=== PATIENT | female | born 1965 | race Caucasian/White ===

== ENCOUNTER 2017-11-04 10:29 | Emergency (ER) | payer MEDICAID ==
[~2017-11-04] VITALS: Ht 170.2 cm; Wt 105.0 kg
[2017-11-04 15:49] VITALS: BP 139/80
== END 2017-11-04 16:01 | disposition home or self-care (01) ==
LOC: ER 12:18
DX: M25.562 Pain in left knee (principal); H92.02 Otalgia, left ear
CPT/HCPCS: 73562; 93971; 99284; L1830

== ENCOUNTER 2019-04-29 10:17 | Emergency (ER) | payer MEDICAID ==
[~2019-04-29] VITALS: Ht 172.7 cm; Wt 90.0 kg
[2019-04-29] MEDS ORDERED: IBUPROFEN 600MG TABLET PO STA (11:10)
[2019-04-29 11:36] LABS: BASOPHILS % 1.1 % (0.0-2.0); EOSINOPHILS % 1.9 % (0.0-5.0); HEMATOCRIT. 35.9 % (36.0-48.0); HEMOGLOBIN. 12.4 g/dL (12.0-16.0); LYMPHOCYTES % 46.3 % (20.0-50.0); MEAN CORPUSCULAR HEMOGLOBIN 29.5 pg (28.0-32.0); MEAN CORPUSCULAR VOLUME 85.3 fL (81.0-99.0); MEAN PLATELET VOLUME 8.2 fl (7.4-10.4); MONOCYTES % 7.8 % (2.0-8.0); NEUTROPHILS % 42.9 % (40.0-76.0); PLATELET 289 x1000/uL (130-400); RED CELL DISTRIBUTION WIDTH 13.3 % (11.6-14.6)
[2019-04-29 11:37] LABS: CHLORIDE 108 mEq/L (98-107)
[2019-04-29 11:42] LABS: CLARITY URINE CLEAR (CLEAR); COLOR URINE YELLOW (YELLOW); KETONES URINE NEGATIVE (NEGATIVE); LEUKOCYTE ESTERASE URINE NEGATIVE (NEGATIVE); NITRITE URINE NEGATIVE (NEGATIVE); OCCULT BLOOD URINE TRACE (NEGATIVE); PH URINE 6.5 (4.5-8.0); PROTEIN URINE NEGATIVE (NEGATIVE); SPECIFIC GRAVITY URINE 1.017 (1.005-1.030); UROBILINOGEN URINE 0.2 E.U./dL (0.2-1.0)
[2019-04-29] MEDS ORDERED: ONDANSETRON 4MG ODT PO ONE (11:45)
[2019-04-29 13:22] VITALS: BP 119/80
== END 2019-04-29 13:30 | disposition home or self-care (01) ==
LOC: ER 10:17
DX: R51 Headache (principal); R10.9 Unspecified abdominal pain
CPT/HCPCS: 36415; 70450; 80053; 81003; 81025; 83690; 85025; 93005; 99285; Q0162

== ENCOUNTER 2022-05-28 12:33 | Emergency (ER) | payer MEDICAID, OTHER ==
[~2022-05-28] VITALS: Ht 172.7 cm; Wt 100.0 kg
[2022-05-28] MEDS ORDERED: IBUPROFEN 400MG TABLET PO ONE (13:30)
[2022-05-28] MEDS ORDERED: P50 MT (13:47)
[2022-05-28] MEDS ORDERED: IBUP-2028 MT (13:47)
[2022-05-28] MEDS ORDERED: VALA10002 MT (13:47)
[2022-05-28] MEDS ORDERED: HYDR-4001 MT (13:47)
[2022-05-28 14:02] VITALS: BP 134/90
== END 2022-05-28 14:04 | disposition home or self-care (01) ==
LOC: ER 12:33
DX: B02.9 Zoster without complications (principal); G43.909 Migraine, unspecified, not intractable, without status migrainosus
CPT/HCPCS: 99282

== ENCOUNTER 2022-12-25 18:53 | Emergency (ER) | payer OTHER ==
[~2022-12-25] VITALS: Ht 170.2 cm; Wt 100.0 kg
[~2022-12-25 18:53] MED LIST: HYDR-4001 MT; IBUP-2028 MT; P50 MT; VALA10002 MT
[2022-12-25 18:58] VITALS: O2SAT 99
[2022-12-25] MEDS ORDERED: NAPR-1176 MT (20:34)
[2022-12-25] MEDS ORDERED: LIDO700A15 TP (20:34)
[2022-12-25 20:54] VITALS: BP 143/68
[2022-12-25] MEDS: KETOROLAC 30MG/ML VIAL IM ONE (20:54)
[2022-12-25 20:55] VITALS: PULSE 78; RESP 18; TEMP 98.3
== END 2022-12-25 20:56 | disposition home or self-care (01) ==
LOC: ER 18:53
DX: M54.50 Low back pain, unspecified (principal); R51.9 Headache, unspecified; V98.8XXA Other specified transport accidents, initial encounter; Y93.89 Activity, other specified; Y92.89 Other specified places as the place of occurrence of the external cause; Y99.8 Other external cause status
CPT/HCPCS: 99285; 70450; 72125; 96372; J1885

== ENCOUNTER 2023-04-26 16:50 | Emergency (ER) | payer OTHER ==
[~2023-04-26] VITALS: Ht 172.7 cm; Wt 100.0 kg
[~2023-04-26 16:50] MED LIST changes: +LIDO700A15 TP; +NAPR-1176 MT
[2023-04-26 17:18] VITALS: TEMP 98.7; O2SAT 98
[2023-04-26 17:52] LABS: CLARITY URINE CLEAR (CLEAR); COLOR URINE YELLOW (YELLOW); GLUCOSE URINE NEGATIVE (NEGATIVE); KETONES URINE NEGATIVE (NEGATIVE); LEUKOCYTE ESTERASE URINE 1+ (NEGATIVE); NITRITE URINE POSITIVE (NEGATIVE); OCCULT BLOOD URINE 1+ (NEGATIVE); PH URINE 5.5 (4.5-8.0); PROTEIN URINE NEGATIVE (NEGATIVE); SPECIFIC GRAVITY URINE 1.025 (1.005-1.030)
[2023-04-26 18:35] LABS: BASOPHILS % 0.8 % (0.0-2.0); HEMATOCRIT. 35.9 % (36.0-48.0); HEMOGLOBIN. 12.1 g/dL (12.0-16.0); LYMPHOCYTES % 39.2 % (20.0-50.0); MEAN CORPUSCULAR HEMOGLOBIN 29.1 pg (28.0-32.0); MEAN CORPUSCULAR HGB CONC 33.7 g/dL (31.0-37.0); MEAN CORPUSCULAR VOLUME 86.4 fL (81.0-99.0); MEAN PLATELET VOLUME 8.6 fl (7.4-10.4); MONOCYTES % 6.3 % (2.0-8.0); NEUTROPHILS % 51.7 % (40.0-76.0); PLATELET 293 x1000/uL (130-400); RED BLOOD CELL COUNT 4.15 mill/uL (4.2-5.4); RED CELL DISTRIBUTION WIDTH 13.1 % (11.6-14.6); WHITE BLOOD COUNT 6.8 x1000/uL (4.5-11.0)
[2023-04-26 18:44] LABS: ALANINE AMINOTRANSFERASE 8 IU/L (10-49); ALBUMIN 4.4 g/dL (3.2-4.8); ASPARTATE AMINOTRANSFERASE 14 IU/L (<34); BILIRUBIN TOTAL 0.5 mg/dL (0.1-1.0); CALCIUM 9.4 mg/dL (8.7-10.4); CARBON DIOXIDE 30 mEq/L (21-32); CHLORIDE 107 mEq/L (98-107); GLUCOSE 109 mg/dL (70-105); POTASSIUM 3.7 mEq/L (3.5-5.1); PROTEIN TOTAL 7.3 g/dL (6.0-8.3); SODIUM 143 mEq/L (136-145); UREA NITROGEN BLOOD 12 mg/dL (9-23)
[2023-04-26 19:07] LABS: BACTERIA URINE 2+; RBC URINE NONE SEEN /hpf (0-2); SQUAMOUS EPITHELIAL CELL URINE FEW /lpf (RARE/1+)
[2023-04-26] MEDS ORDERED: NITR-87 MT (19:45)
[2023-04-26] MEDS ORDERED: PHEN-815 MT (19:45)
[2023-04-26 20:19] VITALS: BP 139/87; PULSE 66; RESP 16
== END 2023-04-26 20:26 | disposition home or self-care (01) ==
LOC: ER 16:50
DX: R33.9 Retention of urine, unspecified (principal); N39.0 Urinary tract infection, site not specified; Z98.890 Other specified postprocedural states; Z90.710 Acquired absence of both cervix and uterus; Z79.899 Other long term (current) drug therapy
CPT/HCPCS: 36415; 80053; 81003; 85025; 99283

== ENCOUNTER 2023-05-08 10:45 | Emergency (ER) | payer OTHER ==
[~2023-05-08] VITALS: Ht 167.6 cm; Wt 104.0 kg
[~2023-05-08 10:45] MED LIST changes: +NITR-87 MT; +PHEN-815 MT
[2023-05-08 11:02] VITALS: O2SAT 98
[2023-05-08 11:29] LABS: CLARITY URINE CLOUDY (CLEAR); COLOR URINE YELLOW (YELLOW); GLUCOSE URINE NEGATIVE (NEGATIVE); KETONES URINE NEGATIVE (NEGATIVE); LEUKOCYTE ESTERASE URINE 2+ (NEGATIVE); NITRITE URINE NEGATIVE (NEGATIVE); OCCULT BLOOD URINE 1+ (NEGATIVE); PROTEIN URINE NEGATIVE (NEGATIVE); SPECIFIC GRAVITY URINE 1.013 (1.005-1.030); UROBILINOGEN URINE 0.2 E.U./dL (0.2-1.0)
[2023-05-08] MEDS ORDERED: PYR200 MT (11:37)
[2023-05-08] MEDS ORDERED: CEPH500C2 MT (11:37)
[2023-05-08 11:43] LABS: BACTERIA URINE 1+; RBC URINE 0-2 /hpf (0-2); SQUAMOUS EPITHELIAL CELL URINE 2+ /lpf (RARE/1+); WBC URINE 50-100 /hpf (0-2); YEAST URINE NONE SEEN
[2023-05-08] MEDS: CEPHALEXIN 250MG CAPSULE PO ONE (12:18)
[2023-05-08] MEDS: PHENAZOPYRIDINE HCL 100MG TABLET PO ONE (12:18)
[2023-05-08 12:22] VITALS: BP 134/80; PULSE 69; RESP 12; TEMP 98
== END 2023-05-08 12:27 | disposition home or self-care (01) ==
LOC: ER 10:57
DX: N39.0 Urinary tract infection, site not specified (principal); Z90.710 Acquired absence of both cervix and uterus; Z98.890 Other specified postprocedural states; Z79.899 Other long term (current) drug therapy
CPT/HCPCS: 81003; 87077; 87186; 99283

== ENCOUNTER 2023-11-08 02:43 | Emergency (ER) | payer OTHER ==
[~2023-11-08] VITALS: Ht 172.7 cm; Wt 105.0 kg
[~2023-11-08 02:43] MED LIST changes: +CEPH500C2 MT; +PYR200 MT
[2023-11-08 02:49] VITALS: O2SAT 100
[2023-11-08 03:41] LABS: CHLORIDE 105 mEq/L (98-107); SODIUM 141 mEq/L (136-145)
[2023-11-08 03:42] LABS: CALCIUM 9.5 mg/dL (8.7-10.4); CARBON DIOXIDE 30 mEq/L (21-32)
[2023-11-08 03:47] LABS: CREATININE 1.1 mg/dL (0.6-1.0); GLUCOSE 114 mg/dL (70-105); UREA NITROGEN BLOOD 15 mg/dL (9-23)
[2023-11-08 03:49] LABS: ALANINE AMINOTRANSFERASE 11 IU/L (10-49); ALBUMIN 4.5 g/dL (3.2-4.8); ASPARTATE AMINOTRANSFERASE 17 IU/L (<34); BILIRUBIN TOTAL 0.3 mg/dL (0.1-1.0); PROTEIN TOTAL 7.2 g/dL (6.0-8.3)
[2023-11-08 03:52] LABS: BASOPHILS % 0.8 % (0.0-2.0); EOSINOPHILS % 2.7 % (0.0-5.0); HEMATOCRIT. 38.2 % (36.0-48.0); HEMOGLOBIN. 12.6 g/dL (12.0-16.0); LYMPHOCYTES % 42.7 % (20.0-50.0); MEAN CORPUSCULAR HEMOGLOBIN 28.4 pg (28.0-32.0); MEAN CORPUSCULAR VOLUME 85.9 fL (81.0-99.0); MEAN PLATELET VOLUME 8.5 fl (7.4-10.4); NEUTROPHILS % 47.8 % (40.0-76.0); PLATELET 334 x1000/uL (130-400); RED BLOOD CELL COUNT 4.44 mill/uL (4.2-5.4); RED CELL DISTRIBUTION WIDTH 13.4 % (11.6-14.6); WHITE BLOOD COUNT 6.2 x1000/uL (4.5-11.0)
[2023-11-08 04:02] LABS: BILIRUBIN DIRECT < 0.1 mg/dL (<=3.0); TROPONIN I HIGH SENSITIVITY < 4 ng/L (3.0-34)
[2023-11-08 05:01] LABS: CLARITY URINE CLEAR (CLEAR); COLOR URINE YELLOW (YELLOW); GLUCOSE URINE NEGATIVE (NEGATIVE); KETONES URINE NEGATIVE (NEGATIVE); LEUKOCYTE ESTERASE URINE TRACE (NEGATIVE); NITRITE URINE NEGATIVE (NEGATIVE); OCCULT BLOOD URINE 1+ (NEGATIVE); PH URINE 5.5 (4.5-8.0); PROTEIN URINE NEGATIVE (NEGATIVE); SPECIFIC GRAVITY URINE 1.027 (1.005-1.030)
[2023-11-08 05:40] LABS: SQUAMOUS EPITHELIAL CELL URINE 1+ /lpf (RARE/1+)
[2023-11-08 05:42] LABS: RBC URINE 0-2 /hpf (0-2)
[2023-11-08 05:43] LABS: BACTERIA URINE 1+
[2023-11-08] MEDS: MAGNESIUM/ALUMINUM HYDROXIDE/SIMETHICONE 30ML UDC PO NR (06:36)
[2023-11-08] MEDS: KETOROLAC 30MG/ML VIAL IM NR (06:36)
[2023-11-08] MEDS: FAMOTIDINE 20MG TABLET PO NR (06:36)
[2023-11-08 07:05] LABS: TROPONIN I HIGH SENSITIVITY < 4 ng/L (3.0-34)
[2023-11-08] MEDS ORDERED: FAMO40TA70 MT (07:41)
[2023-11-08] MEDS ORDERED: CEPH500C2 MT (07:41)
[2023-11-08 07:52] VITALS: BP 125/84; PULSE 63; RESP 20; TEMP 36.78072; O2SAT 100
== END 2023-11-08 07:55 | disposition home or self-care (01) ==
LOC: ER 02:43
DX: K80.50 Calculus of bile duct without cholangitis or cholecystitis without obstruction (principal); N39.0 Urinary tract infection, site not specified; Z79.899 Other long term (current) drug therapy
CPT/HCPCS: 80076; 80048; 81003; 81025; 83880; 83690; 85025; 84484; 36415; 71045; 76700; 93005; 96372; 99285; J1885; Z7610

== ENCOUNTER 2024-01-07 00:55 | Emergency (ER) | payer OTHER ==
[~2024-01-07] VITALS: Ht 172.7 cm; Wt 100.0 kg
[~2024-01-07 00:55] MED LIST changes: +FAMO40TA70 MT
[2024-01-07 01:01] VITALS: O2SAT 100
[2024-01-07 01:06] VITALS: BP 158/84; PULSE 74; RESP 16; TEMP 98.3; O2SAT 100
[2024-01-07] MEDS: ONDANSETRON 4MG ODT PO STA (01:28)
[2024-01-07] MEDS: HYDROCODONE/ACETAMINOPHEN 5/325MG TABLET PO ONE (01:28)
[2024-01-07 01:38] LABS: BASOPHILS % 0.8 % (0.0-2.0); EOSINOPHILS % 2.3 % (0.0-5.0); HEMATOCRIT. 36.3 % (36.0-48.0); HEMOGLOBIN. 12.5 g/dL (12.0-16.0); MEAN CORPUSCULAR HEMOGLOBIN 29.3 pg (28.0-32.0); MEAN CORPUSCULAR HGB CONC 34.3 g/dL (31.0-37.0); MEAN CORPUSCULAR VOLUME 85.5 fL (81.0-99.0); MONOCYTES % 6.8 % (2.0-8.0); NEUTROPHILS % 53.1 % (40.0-76.0); PLATELET 322 x1000/uL (130-400); RED BLOOD CELL COUNT 4.25 mill/uL (4.2-5.4); RED CELL DISTRIBUTION WIDTH 13.6 % (11.6-14.6); WHITE BLOOD COUNT 6.9 x1000/uL (4.5-11.0)
[2024-01-07 01:47] LABS: CHLORIDE 107 mEq/L (98-107); POTASSIUM 3.9 mEq/L (3.5-5.1); SODIUM 142 mEq/L (136-145)
[2024-01-07 01:48] LABS: CALCIUM 9.4 mg/dL (8.7-10.4); CARBON DIOXIDE 29 mEq/L (21-32)
[2024-01-07 01:53] LABS: GLUCOSE 125 mg/dL (70-105); UREA NITROGEN BLOOD 12 mg/dL (9-23)
[2024-01-07 01:54] LABS: ALANINE AMINOTRANSFERASE 15 IU/L (10-49); ASPARTATE AMINOTRANSFERASE 16 IU/L (<34)
[2024-01-07 01:55] LABS: ALBUMIN 4.3 g/dL (3.2-4.8); BILIRUBIN TOTAL 0.3 mg/dL (0.1-1.0)
[2024-01-07 03:15] LABS: CLARITY URINE CLEAR (CLEAR); COLOR URINE YELLOW (YELLOW); GLUCOSE URINE TRACE (NEGATIVE); KETONES URINE NEGATIVE (NEGATIVE); LEUKOCYTE ESTERASE URINE 1+ (NEGATIVE); NITRITE URINE NEGATIVE (NEGATIVE); OCCULT BLOOD URINE NEGATIVE (NEGATIVE); PH URINE 7.5 (4.5-8.0); PROTEIN URINE NEGATIVE (NEGATIVE); SPECIFIC GRAVITY URINE 1.016 (1.005-1.030); UROBILINOGEN URINE 0.2 E.U./dL (0.2-1.0)
[2024-01-07] MEDS ORDERED: HYDR-4001 MT (03:23)
[2024-01-07] MEDS ORDERED: CEPH500C2 MT (03:23)
[2024-01-07 04:47] LABS: RBC URINE 0-2 /hpf (0-2); SQUAMOUS EPITHELIAL CELL URINE FEW /lpf (RARE/1+); WBC URINE 0-2 /hpf (0-2)
[2024-01-07 04:49] LABS: BACTERIA URINE NONE SEEN
== END 2024-01-07 03:32 | disposition home or self-care (01) ==
LOC: ER 01:04
DX: K80.20 Calculus of gallbladder without cholecystitis without obstruction (principal); Z79.899 Other long term (current) drug therapy
CPT/HCPCS: 99284; 76705; 80053; 81003; 83690; 85025; 36415; Q0162

== ENCOUNTER 2024-01-11 02:23 | Emergency (ER) | payer OTHER ==
[~2024-01-11] VITALS: Ht 170.2 cm; Wt 104.7 kg
[2024-01-11 02:24] VITALS: O2SAT 100
[2024-01-11 02:56] LABS: BASOPHILS % 0.9 % (0.0-2.0); EOSINOPHILS % 3.7 % (0.0-5.0); HEMATOCRIT. 38.1 % (36.0-48.0); HEMOGLOBIN. 12.5 g/dL (12.0-16.0); MEAN CORPUSCULAR HEMOGLOBIN 28.2 pg (28.0-32.0); MEAN CORPUSCULAR HGB CONC 32.7 g/dL (31.0-37.0); MEAN CORPUSCULAR VOLUME 86.2 fL (81.0-99.0); MEAN PLATELET VOLUME 7.8 fl (7.4-10.4); MONOCYTES % 9.4 % (2.0-8.0); PLATELET 325 x1000/uL (130-400); RED BLOOD CELL COUNT 4.42 mill/uL (4.2-5.4); RED CELL DISTRIBUTION WIDTH 13.4 % (11.6-14.6); WHITE BLOOD COUNT 5.5 x1000/uL (4.5-11.0)
[2024-01-11 03:00] LABS: CHLORIDE 107 mEq/L (98-107); POTASSIUM 4.2 mEq/L (3.5-5.1); SODIUM 141 mEq/L (136-145)
[2024-01-11 03:01] LABS: CARBON DIOXIDE 30 mEq/L (21-32)
[2024-01-11 03:02] LABS: CALCIUM 9.7 mg/dL (8.7-10.4)
[2024-01-11 03:06] LABS: GLUCOSE 127 mg/dL (70-105)
[2024-01-11 03:07] LABS: UREA NITROGEN BLOOD 14 mg/dL (9-23)
[2024-01-11 03:08] LABS: ALANINE AMINOTRANSFERASE 14 IU/L (10-49); ALBUMIN 4.6 g/dL (3.2-4.8); ASPARTATE AMINOTRANSFERASE 19 IU/L (<34)
[2024-01-11 03:09] LABS: BILIRUBIN DIRECT 0.1 mg/dL (<=3.0); BILIRUBIN TOTAL 0.4 mg/dL (0.1-1.0); PROTEIN TOTAL 7.4 g/dL (6.0-8.3)
[2024-01-11 04:22] LABS: CLARITY URINE CLEAR (CLEAR); COLOR URINE YELLOW (YELLOW); GLUCOSE URINE TRACE (NEGATIVE); KETONES URINE NEGATIVE (NEGATIVE); LEUKOCYTE ESTERASE URINE 1+ (NEGATIVE); NITRITE URINE NEGATIVE (NEGATIVE); OCCULT BLOOD URINE TRACE (NEGATIVE); PROTEIN URINE NEGATIVE (NEGATIVE); SPECIFIC GRAVITY URINE 1.021 (1.005-1.030)
[2024-01-11] MEDS: KETOROLAC 15MG/ML VIAL IV ONE (04:54)
[2024-01-11 06:02] LABS: SQUAMOUS EPITHELIAL CELL URINE FEW /lpf (RARE/1+)
[2024-01-11 06:03] LABS: RBC URINE 0-2 /hpf (0-2); WBC URINE 0-2 /hpf (0-2)
[2024-01-11 06:04] LABS: BACTERIA URINE TRACE
[2024-01-11] MEDS: ONDANSETRON HCL 4MG/2ML INJ IV ONE (07:07)
[2024-01-11] MEDS: CEFTRIAXONE 1GM/50ML 50 ML IV ONE (07:15)
[2024-01-11 08:30] VITALS: BP 108/72; PULSE 67; RESP 15; TEMP 36.50292; O2SAT 100
[2024-01-11] MEDS ORDERED: DOCUSATE SODIUM 100MG CAPSULE PO PRN (10:45)
[2024-01-11] MEDS ORDERED: HYDRALAZINE 20MG/ML VIAL IV PRN (10:45)
[2024-01-11] MEDS ORDERED: DEXT 5%/0.45% NACL 1000ML 1,000 ML IV SCH (10:45)
[2024-01-11] MEDS ORDERED: ONDANSETRON HCL 4MG/2ML INJ IV PRN (10:45)
[2024-01-11] MEDS ORDERED: CLONIDINE 0.1MG TABLET PO PRN (10:45)
[2024-01-11] MEDS ORDERED: ACETAMINOPHEN 325MG TABLET PO PRN ×2 (10:45)
[2024-01-11] MEDS ORDERED: IPRATROPIUM/ALBUTEROL 0.5-3(2.5)MG/3ML NEB HHN PRN (10:45)
[2024-01-11] MEDS ORDERED: KETOROLAC 30MG/ML VIAL IV PRN (10:45)
[2024-01-11] MEDS ORDERED: PIPERACILLIN/TAZO 3.375G/50ML 50 ML IV SCH (11:45)
[2024-01-12] MEDS ORDERED: PANTOPRAZOLE SODIUM 40 MG/VIAL IV SCH (09:00)
== END 2024-01-11 10:49 | disposition short-term general hospital (02) ==
LOC: ER 02:23 → CANBEDREQ 08:46 → ER 10:49
DX: K81.9 Cholecystitis, unspecified (principal); Z79.899 Other long term (current) drug therapy
CPT/HCPCS: 80076; 80048; 81003; 83690; 85025; 87086; 36415; 76705; 96365; 96375; 99291; J0696; J1885; J2405; Z7610 ×4

== ENCOUNTER 2024-04-04 04:03 | Emergency (ER) | payer MEDICAID, OTHER ==
[~2024-04-04] VITALS: Ht 172.7 cm; Wt 104.0 kg
[~2024-04-04 04:03] MED LIST changes: -CEPH500C2 MT; +LEVO-65 MT; -NAPR-1176 MT; -NITR-87 MT
[2024-04-04 04:35] VITALS: O2SAT 98
[2024-04-04] MEDS: HYDROCODONE/ACETAMINOPHEN 5/325MG TABLET PO STA (05:01)
[2024-04-04 05:03] LABS: CLARITY URINE TURBID (CLEAR); COLOR URINE YELLOW (YELLOW); GLUCOSE URINE NEGATIVE (NEGATIVE); KETONES URINE NEGATIVE (NEGATIVE); LEUKOCYTE ESTERASE URINE 2+ (NEGATIVE); NITRITE URINE NEGATIVE (NEGATIVE); OCCULT BLOOD URINE 1+ (NEGATIVE); PROTEIN URINE TRACE (NEGATIVE); SPECIFIC GRAVITY URINE 1.026 (1.005-1.030); UROBILINOGEN URINE 0.2 E.U./dL (0.2-1.0)
[2024-04-04 06:35] LABS: SQUAMOUS EPITHELIAL CELL URINE FEW /lpf (RARE/1+)
[2024-04-04 06:37] LABS: RBC URINE 0-2 /hpf (0-2); WBC URINE 0-2 /hpf (0-2)
[2024-04-04 06:38] LABS: BACTERIA URINE TRACE
[2024-04-04 06:42] LABS: BASOPHILS % 0.8 % (0.0-2.0); EOSINOPHILS % 1.1 % (0.0-5.0); HEMATOCRIT. 38.3 % (36.0-48.0); HEMOGLOBIN. 13.1 g/dL (12.0-16.0); LYMPHOCYTES % 24.3 % (20.0-50.0); MEAN CORPUSCULAR HEMOGLOBIN 29.5 pg (28.0-32.0); MEAN CORPUSCULAR HGB CONC 34.2 g/dL (31.0-37.0); MEAN CORPUSCULAR VOLUME 86.2 fL (81.0-99.0); MEAN PLATELET VOLUME 8.8 fl (7.4-10.4); MONOCYTES % 4.7 % (2.0-8.0); NEUTROPHILS % 69.1 % (40.0-76.0); PLATELET 334 x1000/uL (130-400); RED BLOOD CELL COUNT 4.44 mill/uL (4.2-5.4); RED CELL DISTRIBUTION WIDTH 13.4 % (11.6-14.6); WHITE BLOOD COUNT 7.2 x1000/uL (4.5-11.0)
[2024-04-04 06:49] LABS: CHLORIDE 105 mEq/L (98-107); POTASSIUM 4.4 mEq/L (3.5-5.1); SODIUM 141 mEq/L (136-145)
[2024-04-04 06:50] LABS: CALCIUM 9.8 mg/dL (8.7-10.4); CARBON DIOXIDE 29 mEq/L (21-32)
[2024-04-04 06:51] LABS: INR 0.9; PROTHROMBIN TIME 10.3 sec (9.6-11.0)
[2024-04-04 06:55] LABS: GLUCOSE 117 mg/dL (70-105); UREA NITROGEN BLOOD 19 mg/dL (9-23)
[2024-04-04 06:57] LABS: ALANINE AMINOTRANSFERASE 12 IU/L (10-49); ALBUMIN 4.6 g/dL (3.2-4.8); ASPARTATE AMINOTRANSFERASE 15 IU/L (<34); BILIRUBIN TOTAL 0.3 mg/dL (0.1-1.0)
[2024-04-04 06:58] LABS: PROTEIN TOTAL 7.6 g/dL (6.0-8.3)
[2024-04-04 07:04] LABS: BILIRUBIN DIRECT < 0.1 mg/dL (<=3.0); TROPONIN I HIGH SENSITIVITY < 4 ng/L (3.0-34)
[2024-04-04 09:13] LABS: TROPONIN I HIGH SENSITIVITY < 4 ng/L (3.0-34)
[2024-04-04 12:41] VITALS: BP 135/81; PULSE 78; RESP 17; TEMP 36.7; O2SAT 99
== END 2024-04-04 12:58 | disposition short-term general hospital (02) ==
LOC: ER 04:03 → CANBEDREQ 07:52 → ER 12:58
DX: K80.64 Calculus of gallbladder and bile duct with chronic cholecystitis without obstruction (principal); Z98.890 Other specified postprocedural states; Z79.899 Other long term (current) drug therapy
CPT/HCPCS: 36415; 74176; 76705; 80048; 80076; 81003; 83880; 84484; 85025; 93005; 99285

== ENCOUNTER 2024-04-18 22:36 | Emergency (ER) | payer OTHER ==
[~2024-04-18] VITALS: Ht 172.7 cm; Wt 104.0 kg
[2024-04-18 23:04] VITALS: O2SAT 98
[2024-04-18 23:37] LABS: BASOPHILS % 0.8 % (0.0-2.0); EOSINOPHILS % 1.5 % (0.0-5.0); HEMATOCRIT. 37.5 % (36.0-48.0); HEMOGLOBIN. 12.7 g/dL (12.0-16.0); MEAN CORPUSCULAR HGB CONC 33.8 g/dL (31.0-37.0); MEAN CORPUSCULAR VOLUME 85.9 fL (81.0-99.0); MEAN PLATELET VOLUME 8.5 fl (7.4-10.4); MONOCYTES % 6.1 % (2.0-8.0); NEUTROPHILS % 55.6 % (40.0-76.0); PLATELET 322 x1000/uL (130-400); RED BLOOD CELL COUNT 4.36 mill/uL (4.2-5.4); RED CELL DISTRIBUTION WIDTH 13.3 % (11.6-14.6)
[2024-04-18 23:42] LABS: CHLORIDE 106 mEq/L (98-107); POTASSIUM 3.6 mEq/L (3.5-5.1); SODIUM 144 mEq/L (136-145)
[2024-04-18 23:44] LABS: CALCIUM 9.5 mg/dL (8.7-10.4); CARBON DIOXIDE 30 mEq/L (21-32)
[2024-04-18 23:49] LABS: GLUCOSE 119 mg/dL (70-105); UREA NITROGEN BLOOD 15 mg/dL (9-23)
[2024-04-18 23:51] LABS: ALANINE AMINOTRANSFERASE 9 IU/L (10-49); ALBUMIN 4.5 g/dL (3.2-4.8); ASPARTATE AMINOTRANSFERASE 16 IU/L (<34); BILIRUBIN TOTAL 0.3 mg/dL (0.1-1.0); PROTEIN TOTAL 7.3 g/dL (6.0-8.3)
[2024-04-19 00:27] LABS: BILIRUBIN DIRECT < 0.1 mg/dL (<=3.0)
[2024-04-19] MEDS: ONDANSETRON HCL 4MG/2ML INJ IV ONE ×2 (02:40→03:30)
[2024-04-19] MEDS: MORPHINE SULFATE 4 MG/ML INJ (FOR IV/IM USE) IV ONE ×2 (02:40→03:49)
[2024-04-19 02:41] LABS: CLARITY URINE CLEAR (CLEAR); COLOR URINE YELLOW (YELLOW); GLUCOSE URINE NEGATIVE (NEGATIVE); KETONES URINE NEGATIVE (NEGATIVE); LEUKOCYTE ESTERASE URINE 1+ (NEGATIVE); NITRITE URINE NEGATIVE (NEGATIVE); OCCULT BLOOD URINE TRACE (NEGATIVE); PROTEIN URINE NEGATIVE (NEGATIVE); SPECIFIC GRAVITY URINE 1.026 (1.005-1.030); UROBILINOGEN URINE 0.2 E.U./dL (0.2-1.0)
[2024-04-19 02:57] LABS: PROTHROMBIN TIME 10.9 sec (9.6-11.0)
[2024-04-19] MEDS: IOHEXOL-300 100 ML BOTTLE ONE (03:50)
[2024-04-19 06:08] LABS: SQUAMOUS EPITHELIAL CELL URINE 1+ /lpf (RARE/1+)
[2024-04-19 06:10] LABS: BACTERIA URINE TRACE
[2024-04-19] MEDS ORDERED: ONDA-241 MT (06:58)
[2024-04-19] MEDS ORDERED: TRAM-534 MT (06:58)
[2024-04-19] MEDS ORDERED: AMOX1TAB16 MT (06:58)
[2024-04-19 07:09] VITALS: BP 133/79; PULSE 60; RESP 16; TEMP 36.8; O2SAT 100
== END 2024-04-19 07:36 | disposition home or self-care (01) ==
LOC: ER 22:36
DX: K80.50 Calculus of bile duct without cholangitis or cholecystitis without obstruction (principal); Z98.890 Other specified postprocedural states
CPT/HCPCS: 99285; 80076; 80048; 83690; 85025; 85610; 86850; 86900; 86901; 36415; 93005; 74177; 96374; 76705; 96375; 81003; Q9967; J2405; J2270